=== PATIENT | female | born 1945 | race Caucasian/White ===

== ENCOUNTER → 2016-10-12 | Outpatient (CLI) | payer MEDICARE, BC ==
--- NOTE | 2016-10-12 10:57 | MM ---
Reason for exam: follow-up at short interval from prior study. Last mammogram was performed 6 months ago. History: Patient is postmenopausal and has history of other cancer at age 68. Family history of breast cancer in mother at age 63. Benign US biopsy breast VAD RT of the right breast, April 06, 2016. Physical Findings: Nurse did not find any significant physical abnormalities on exam. MG 3D Diag Mammo W/Cad RT CC, MLO, and ML view(s) were taken of the right breast. Prior study comparison: April 06, 2016, right breast MG diagnostic mammo RT wo CAD. March 23, 2016, right breast US breast workup RT. February 27, 2016, bilateral MG 3d screening mammo w/cad. October 29, 2014, bilateral MG screening mammo w CAD. November 09, 2012, bilateral digital screening mammo w/CAD. The breast tissue is heterogeneously dense. This may lower the sensitivity of mammography. Previous mammotome biopsy within the right breast. No significant new findings when compared with previous films. These results were verbally communicated with the patient and result sheet given to the patient on 10/12/16. ASSESSMENT: Negative, BI-RAD 1 RECOMMENDATION: Return to routine screening mammogram schedule for both breasts. Back on schedule for February 2017.
== END | disposition home or self-care (01) ==
LOC: RADMAMWWP 09:26
PROVIDERS: ATTEND Internal Medicine Hematology & Oncology
DX: R92.8 Other abnormal and inconclusive findings on diagnostic imaging of breast (principal)
CPT/HCPCS: G0206; G0279

== ENCOUNTER → 2017-08-21 | Outpatient (CLI) | payer MEDICARE, BC ==
--- NOTE | 2017-08-23 17:10 | PE ---
Nuclear medicine PET/CT HISTORY: Carcinoma of rectum, subsequent Patient received 12.3 mCi F-18 FDG intravenously in delayed scanning was performed from the skull bas e through the mid thighs. Localization and attenuation correction CT was performed in the exam is cor related to prior nuclear medicine PET/CT 11/26/2012, prior chest abdomen pelvis CT 01/08/2015 Neck And chest: There is no suspicious hypermetabolic uptake. No evident lung mass. Coronary artery c alcifications are noted incidentally. No mediastinal, axillary, or hilar adenopathy. Extensive emphys ematous changes are present within the lungs. Descending aorta is ectatic measuring 3.2 cm. Abdomen pelvis: There is an infrarenal abdominal aortic aneurysm measuring 6.1 cm, common iliac arter ies are not well discerned from the background of abnormal soft tissue. There is associated hypermeta bolic uptake within the presacral region, SUV is 21. Abnormal soft tissue is poorly defined at this l evel but measures approximately 4-5 cm in greatest dimension and is an interval finding. Right-sided hydronephrosis is an interval finding. Small focus at the inferior aspect of the ligament um teres level shows an SUV of approximately 4.5. Postop changes are noted to the bowel within the pelvis and also at the level of the rectosigmoid chevy ction. Double-J right ureteral stent is in place. Small focus anterior to the liver on axial image ap proximately 140 to shows an SUV value of 3.3. Some mild uptake noted along the patient's anterior abd ominal wall scar shows only mild uptake, SUV 3.1. IMPRESSION: Interval presacral abnormal soft tissue mass suspicious for metastatic disease, findings at the level of the liver as described. Interval increase in patient's abdominal aortic aneurysm. Int erval right-sided nephrolithiasis and stent placement. A Yellow message has been communicated to Emelina Veronica MD via the [facility] system on 08/23/2017 5:07 PM, Message ID [id number].
== END | disposition home or self-care (01) ==
LOC: RADPETMAIN 11:41
PROVIDERS: ATTEND Internal Medicine Hematology & Oncology
DX: C20 Malignant neoplasm of rectum (principal); N20.0 Calculus of kidney; I71.4 Abdominal aortic aneurysm, without rupture; Z96.0 Presence of urogenital implants
CPT/HCPCS: 78815; A9552

== ENCOUNTER → 2017-08-31 | Outpatient (CLI) | payer MEDICARE, BC ==
--- NOTE | 2017-09-01 08:11 | US ---
EXAMINATION TYPE: US kidneys/renal and bladder DATE OF EXAM: 08/31/2017 COMPARISON: NONE CLINICAL HISTORY: N35.9 Hematuria. Patient states she has a stent in the right kidney. EXAM MEASUREMENTS: Right Kidney: 11.7 x 6.0 x 5.3 cm Left Kidney: 11.2 x 4.8 x 4.8 cm Right Kidney: Moderate right hydronephrosis with stent seen Left Kidney: No hydronephrosis or masses seen Bladder: not seen, extensive bowel gas noted in bladder area. No nephrolithiasis is seen. No masses are identified. IMPRESSION: 1. Moderate right hydronephrosis.
== END | disposition home or self-care (01) ==
LOC: RADUSWWP 15:58
PROVIDERS: ATTEND Internal Medicine
DX: N13.30 Unspecified hydronephrosis (principal)
CPT/HCPCS: 76770

== ENCOUNTER → 2017-09-02 | Outpatient (CLI) | payer MEDICARE, BC ==
--- NOTE | 2017-09-02 17:13 | CT ---
EXAMINATION TYPE: CT angio abdomen pelvis DATE OF EXAM: 09/02/2017 COMPARISON: NONE INDICATION: Patient complains of generalized abdominal pain and back pain. Patient has a history of known AAA. DLP: 208.7 mGycm, Automated exposure control for dose reduction was used. CONTRAST: 80 mL of Visipaque 320. Study performed without Oral Contrast TECHNIQUE: Axial images were obtained from above the diaphragm to the pubic rami in the axial plane a t 5 mm thick sections. Reconstructed images are reviewed on the computer in the coronal plane. FINDINGS: The descending thoracic aorta within the [id number] measures 3.[address] sections are obtained the lung bases. The lung bases are clear. CT ABDOMEN: Liver: Normal Spleen: Normal Pancreas: Normal Adrenal glands: There is a 1.2 cm nodule on the left adrenal gland. Right adrenal gland has mild full ness and may measure 1.5 cm. Gallbladder: Normal Kidneys: No masses are evident. There is marked right hydronephrosis. A right renal stent is evident. Note is made of asymmetric contrast within the kidneys with delayed contrast entering the right kidn ey compared to the left. No cysts are present. Delayed images were obtained through the kidneys, whi ch remain unremarkable. Aorta: Vascular calcification is within the aorta. There is an abdominal aortic aneurysm beginning i nferior to the renal arteries. This has a maximum AP dimension 5.0 cm x 5.6 cm transverse. This termi nates at the bifurcation. Inferior vena cava: Normal. CT PELVIS: There appears be some ill-defined lobular density in the presacral space below the level o f bifurcation. Adenopathy could be considered. Loops of bowel within the abdomen and pelvis are normal. No oral contrast was utilized. Appendix: Normal as visualized. Urinary bladder: Decompressed. Genitourinary structures: Uterus appears to be normal. Adnexal regions are clear. Osseous structures: No suspicious lytic or sclerotic lesions. IMPRESSIONS: 1. Abdominal aortic aneurysm measuring 5.0 AP by 5.6 cm transverse. This has increased from 5. 2. Ill-defined lobular density in the presacral space extending from the aortic bifurcation could be some matted adenopathy. Retroperitoneal fibrosis could be within the differential. This has developed from the comparison of 01/08/2015.
== END | disposition home or self-care (01) ==
LOC: RADCTMAIN 15:11
PROVIDERS: ATTEND Internal Medicine
DX: I71.4 Abdominal aortic aneurysm, without rupture (principal); N13.5 Crossing vessel and stricture of ureter without hydronephrosis; M54.9 Dorsalgia, unspecified
CPT/HCPCS: 82565; 84520; 36415; 74174; Q9967